=== PATIENT | female | born 1950 | race Caucasian/White ===

== ENCOUNTER 2016-08-27 07:32 | Day surgery (SDC) | payer MEDICARE, OTHER ==
[2016-08-22 15:03] VITALS: BMI 37.1
[~2016-08-27 07:32] MED LIST: LACTATED RINGERS 1,000 ML IV SCH; LIDOCAINE 1% 20 ML VIAL (10MG/ML) FOR IV START INTRADERMA PRN
[2016-08-27 08:06] LABS: Glucose,Whole Blood 85 mg/dL (75-99)
[2016-08-27 08:09] VITALS: RESP 18; TEMP 97.1
[2016-08-27] MEDS ORDERED: PROPOFOL 10 MG/ML 20 ML VIAL IV ONE (08:42)
--- NOTE | 2016-08-27 09:29 | P.OP ---
Date of Procedure: 08/27/16 Preoperative Diagnosis: Screening colonoscopy Postoperative Diagnosis: Cecal polyp, diverticuli, internal/external hemorrhoids Procedure(s) Performed: Colonoscopy Anesthesia: MAC Surgeon: Lety Jackson Estimated Blood Loss (ml): 0 Pathology: other (Cecal polyp) Condition: stable Disposition: PACU Indications for Procedure: Screening colonoscopy Operative Findings: Cecal polyp, diverticuli, internal/external hemorrhoids Description of Procedure: Patient was taken to the endoscopy suite and following sedation rectal exam was performed. Patient was noted to have external skin tags/hemorrhoids. No masses were identified. Colonoscope was passed through the anus into the rectum. Through the sigmoid colon left colon splenic flexure transverse colon hepatic flexure right colon down to the area of the cecum. Circumferential observation mucosa revealed polyp in the cecum which was removed with snare polypectomy and retrieved. The bowel prep was somewhat suboptimal but no other lesions of concern were identified. No lesions of concern were seen in the right colon. No lesions of concern in the transverse colon or left colon. Scattered sigmoid diverticuli were identified. Scope was brought down into the rectum where it was retroflexed internal hemorrhoids identified. Approximately 10 minutes were taken to withdraw the scope from the area of the cecum. Impression/plan 1. Internal/external hemorrhoids 2. Diverticuli sigmoid 3. Cecal polyp removed with snare polypectomy and retrieved Plan: 1. Conservative management of hemorrhoids and diverticuli 2. Await results of pathology from cecal polyp most likely repeat scope in 2 years
--- NOTE | 2016-08-27 09:30 | P.DS ---
Providers Attending physician: Lety Jackson Primary care physician: Mykel Seymour Plan - Discharge Summary Discharge Medication List ALPRAZolam [Xanax] 0.5 mg PO TID PRN 02/14/16 [History] Cholecalciferol [Vitamin D3] 2,000 unit PO QAM 02/14/16 [History] Cyclobenzaprine [Flexeril] 10 mg PO TID PRN 02/14/16 [History] Magnesium Oxide [Magox 400] 400 mg PO QAM 02/14/16 [History] Methocarbamol [Robaxin] 500 mg PO QID PRN 02/14/16 [History] Simvastatin [Zocor] 40 mg PO HS 02/14/16 [History] Anastrozole [Arimidex] 1 mg PO QAM 08/22/16 [History] Lisinopril [Zestril] 5 mg PO QAM 08/22/16 [History] Meclizine [Antivert] 25 mg PO TID 08/22/16 [History] Activity/Diet/Wound Care/Special Instructions: Diverticular diet Discharge Disposition: HOME SELF-CARE
[2016-08-27 10:08] VITALS: BP 130/75; PULSE 66
== END 2016-08-27 10:20 | disposition home or self-care (01) ==
LOC: ORWHC2ENDO 07:32
PROVIDERS: ATTEND Surgery
DX: Z12.11 Encounter for screening for malignant neoplasm of colon (principal); D12.0 Benign neoplasm of cecum; K57.30 Diverticulosis of large intestine without perforation or abscess without bleeding; K64.8 Other hemorrhoids; K64.4 Residual hemorrhoidal skin tags; Z86.010 Personal history of colon polyps; G47.33 Obstructive sleep apnea (adult) (pediatric); I10 Essential (primary) hypertension; E78.5 Hyperlipidemia, unspecified; Z98.84 Bariatric surgery status; Z79.899 Other long term (current) drug therapy; Z85.3 Personal history of malignant neoplasm of breast
CPT/HCPCS: 88305; 45385; J2704; 99153

== ENCOUNTER → 2016-11-11 | Outpatient (CLI) | payer MEDICARE, OTHER ==
[2016-11-11 15:33] VITALS: BP 126/70; PULSE 69; RESP 14; TEMP 97.8; BMI 37.5
--- NOTE | 2016-11-11 16:03 | P.HPBAR ---
Bariatric H&P - History & Physicial H&P Date: 11/11/16 History & Physicial: Visit/CC: band f/u Patient initial contact: Initial weight: 148.778 kg Initial weight in pounds: 328.00 Height: 5 ft 6 in Initial BMI: 52.9 Last weight: Current weight: 105.37 kg Current weight in pounds: 232.30 Current BMI: 37.5 [place] body weight (based on NIH guidelines): 58.967 kg Excess body weight loss: 48.3% The patient is a 65 year-old F who presents for Bariatric Assessment. Patient presents for her LAP-BAND follow-up. She's had some complaints of dysphagia and GERD and vomiting. Her family doctor has ordered some testing of her gallbladder in an esophagram. These were performed at [facility] and are unavailable. Past Medical History Past Medical History: Asthma, Cancer, COPD, Diabetes Mellitus, GERD/Reflux, Hyperlipidemia, Hypertension, Osteoarthritis (OA), Pneumonia, Rheumatoid Arthritis (RA), Sleep Apnea/CPAP/BIPAP Additional Past Medical History / Comment(s): Diet controlled diabetic, hiatal hernia, umbilical hernia. Breast CA with radiation tx. Vertigo, Degen disc disease.Obesity. History of Any Multi-Drug Resistant Organisms: None Reported Past Surgical History: Bariatric Surgery, Bladder Surgery, Heart Catheterization , Hysterectomy, Joint Replacement, Tubal Ligation Additional Past Surgical History / Comment(s): Hx left shoulder replacement, jaron eye surgery for glaucoma. 2Lt breast bx and Lt Lumpectomy. Bladder sling.Hx. Lap Band 12/25/11. Past Anesthesia/Blood Transfusion Reactions: No Reported Reaction Past Psychological History: Anxiety, Depression, Panic Disorder Smoking Status: Never smoker Past Alcohol Use History: Rare Past Drug Use History: None Reported - Past Family History Mother Family Medical History: No Reported History Daughter(s) Family Medical History: Cancer Additional Family Medical History / Comment(s): Colon CA Son(s) Family Medical History: Deep Vein Thrombosis (DVT), Pulmonary Embolus Surgical - Exam Vital Signs Temp Pulse Resp BP 97.8 F 69 14 126/70 11/11/16 15:27 11/11/16 15:27 11/11/16 15:27 11/11/16 15:27 - General well developed, no distress - Eyes PERRL - ENT normal pinna - Neck no masses - Respiratory normal expansion - Cardiovascular Rhythm: regular - Abdomen Abdomen: soft, non tender Bariatric Assessment & Plan Plan: Patient LAP-BAND was accessed in 2 mL was removed. She currently has 5 mL in the LAP-BAND. She is able require without difficulty. We'll follow my office tomorrow for results of her gallbladder testing and esophagram. Bariatric Checklist Checklist: Plan: Checklist: EGD: 1. Hiatal hernia: 2. H. Pylori: HgbA1c: Vitamin D: Smoking: Never smoker Primary care physician referral: jagdeep Psychiatry clearance: Cardiology clearance: Sleep study: Diet journal: VTE risk score: VTE risk level: Rehab needs at discharge:
== END ==
LOC: BARWHC3 14:10
PROVIDERS: ATTEND Surgery
DX: Z48.815 Encounter for surgical aftercare following surgery on the digestive system (principal); Z98.84 Bariatric surgery status
CPT/HCPCS: 99202

== ENCOUNTER → 2016-11-15 | Outpatient (CLI) | payer MEDICARE, OTHER ==
--- NOTE | 2016-11-15 14:43 | NM ---
EXAMINATION TYPE: NM hepatobiliary w EF DATE OF EXAM: 11/15/2016 2:39 PM COMPARISON: NONE HISTORY: Cholecystitis per order. Heartburn and reflux-like symptoms with diminished appetite per pat ient. Cramping. TECHNIQUE: After the intravenous administration of 5.4 mCi Tc 99m Mebrofenin hepatobiliary scintigrap hy is performed. Immediate images post injection. FINDINGS: There is satisfactory initial accumulation of tracer by the liver. The gallbladder is visualized wit hin 25 minutes. The small bowel activity is noted within 20 minutes. At one hour 8 ounces of oral e nsure plus is given to mimic CCK and gallbladder ejection fraction is calculated at 97 %, not diminis hed from the normal range. Therefore there is no scintigraphic evidence of cystic or common bile alyssa t obstruction to suggest acute cholecystitis . Some consider ejection fraction 97% abnormal or a hyp erkinetic response. IMPRESSION: Ejection fraction is 97%, elevated from the normal range, some consider this abnormal or a hyperkinetic response.
== END ==
LOC: RADNMMAIN 11:52
PROVIDERS: ATTEND Surgery
DX: K86.1 Other chronic pancreatitis (principal)
CPT/HCPCS: 78226; A9537

== ENCOUNTER 2016-12-12 07:47 | Day surgery (SDC) | payer MEDICARE, OTHER ==
[2016-12-09 12:02] VITALS: BMI 37.1
[~2016-12-12 07:47] MED LIST changes: +DEXAMETHASONE SOD PHOSPHATE 10 MG/ML 1 ML VIAL IV ONE; -LIDOCAINE 1% 20 ML VIAL (10MG/ML) FOR IV START INTRADERMA PRN; +MIDAZOLAM 2 MG/2 ML VIAL IV PRN; +ONDANSETRON 4 MG/2 ML VIAL IVP ONE; +SCOPOLAMINE 1.5MG/72HR PATCH TRANSDERM ONE; +ceFAZolin 2 GM in SODIUM CHLORIDE 0.9% 100 ML IVPB ONE
[2016-12-12] MEDS ORDERED: LIDOCAINE 1% 20 ML VIAL (10MG/ML) FOR IV START INTRADERMA ONE (08:41)
[2016-12-12] MEDS: HEPARIN SODIUM,PORCINE 5,000 UNIT/ML 1 ML VIAL SQ ONE ×2 (08:44→11:41)
[2016-12-12 08:46] LABS: Glucose,Whole Blood 94 mg/dL (75-99)
--- NOTE | 2016-12-12 08:48 | P.GSHP ---
History of Present Illness H&P Date: 12/12/16 Chief Complaint: Right upper quadrant pain This is a 66-year-old female who presents today for laparoscopic cholecystectomy. Patient complaints of epigastric and right upper quadrant pain. Her recent HIDA scan which had an abnormal ejection fraction patient presents today for laparoscopic cholecystectomy or chronic cholecystitis. - Constitutional Constitutional: Reports as per HPI Past Medical History Past Medical History: Asthma, Cancer, COPD, Diabetes Mellitus, GERD/Reflux, Hyperlipidemia, Hypertension, Osteoarthritis (OA), Rheumatoid Arthritis (RA) Additional Past Medical History / Comment(s): Diet controlled diabetic, hiatal hernia, umbilical hernia. Breast CA with radiation tx. Vertigo, degenerative disc disease, constipation, History of Any Multi-Drug Resistant Organisms: None Reported Past Surgical History: Bariatric Surgery, Bladder Surgery, Breast Surgery, Heart Catheterization, Hysterectomy, Joint Replacement, Tubal Ligation Additional Past Surgical History / Comment(s): Hx left shoulder replacement, jaron eye surgery for glaucoma. Lt breast bx and Lt breast Lumpectomy. Bladder sling. Lap Band 2011 Past Anesthesia/Blood Transfusion Reactions: No Reported Reaction Past Psychological History: Anxiety, Depression, Panic Disorder Smoking Status: Never smoker Past Alcohol Use History: None Reported Past Drug Use History: None Reported - Past Family History Mother Family Medical History: No Reported History Daughter(s) Family Medical History: Cancer Additional Family Medical History / Comment(s): Colon CA Son(s) Family Medical History: Deep Vein Thrombosis (DVT), Pulmonary Embolus Medications and Allergies Home Medications Medication Instructions Recorded Confirmed Type ALPRAZolam [Xanax] 0.5 mg PO TID PRN 02/14/16 12/09/16 History Cholecalciferol [Vitamin D3] 2,000 unit PO QAM 02/14/16 12/12/16 History Cyclobenzaprine [Flexeril] 10 mg PO TID PRN 02/14/16 12/12/16 History Magnesium Oxide [Magox 400] 400 mg PO QAM 02/14/16 12/12/16 History Methocarbamol [Robaxin] 500 mg PO QID PRN 02/14/16 12/12/16 History Anastrozole [Arimidex] 1 mg PO QAM 08/22/16 12/12/16 History Lisinopril [Zestril] 5 mg PO QAM 08/22/16 12/09/16 History Meclizine [Antivert] 25 mg PO TID PRN 08/22/16 12/12/16 History Lactulose 1 tbsp PO HS 12/09/16 12/12/16 History Naproxen [Naprosyn] 375 mg PO Q12HR PRN 12/09/16 12/09/16 History Omeprazole 20 mg PO DAILY 12/09/16 12/12/16 History Allergies Allergy/AdvReac Type Severity Reaction Status Date / Time cigarette smoke Allergy Unknown Verified 12/09/16 13:01 Surgical - Exam Vital Signs Temp Pulse Resp BP Pulse Ox 97.6 F 73 18 114/80 95 12/12/16 08:26 12/12/16 08:26 12/12/16 08:26 12/12/16 08:26 12/12/16 08:26 - General well developed, no distress - Eyes PERRL - ENT normal pinna - Neck no masses - Respiratory normal expansion - Cardiovascular Rhythm: regular - Abdomen Mild right upper quadrant pain Abdomen: soft, tender Assessment and Plan Plan: Right upper quadrant pain Chronic closest We'll perform laparoscopic cholecystectomy.
[2016-12-12] MEDS ORDERED: PROPOFOL 10 MG/ML 20 ML VIAL IV ONE (09:10)
[2016-12-12] MEDS ORDERED: SUCCINYLCHOLINE CHLORIDE 100 MG/5 ML SYR IV ONE (09:10)
[2016-12-12] MEDS ORDERED: fentaNYL (PF) 50 MCG/ML 2 ML AMP ONE (09:10)
[2016-12-12] MEDS ORDERED: LIDOCAINE 1% INJ 10MG/ML (20 ML MDV) ONE (09:10)
[2016-12-12] MEDS ORDERED: ROCURONIUM BROMIDE 10 MG/ML 10 ML VIAL IV ONE (09:10)
[2016-12-12] MEDS ORDERED: HYDROmorphone (PF) 1 MG/ML ONE (09:10)
[2016-12-12] MEDS ORDERED: MIDAZOLAM 2 MG/2 ML VIAL ONE (09:10)
[2016-12-12] MEDS ORDERED: NEOSTIGMINE 1 MG/ML 10 ML VIAL ONE (09:10)
[2016-12-12] MEDS ORDERED: GLYCOPYRROLATE 0.2 MG/ML 2 ML VIAL ONE (09:10)
[2016-12-12] MEDS ORDERED: BUPIVACAIN-EPI 0.25%-1:200,000 30 ML VIAL SQ ONE (09:29)
--- NOTE | 2016-12-12 10:07 | P.OP ---
Date of Procedure: 12/12/16 Preoperative Diagnosis: Cholecystitis Postoperative Diagnosis: Cholecystitis Procedure(s) Performed: Laparoscopic cholecystectomy Implants: Anesthesia: PAM Surgeon: Marc De La Rosa Estimated Blood Loss (ml): 5 Pathology: other (Gallbladder) Condition: stable Disposition: PACU Indications for Procedure: Operative Findings: Description of Procedure: The patient was placed on the operating table. The patient received a general endotracheal tube anesthesia. The patients abdomen was prepped and draped in the usual sterile fashion. Through an infraumbilical stab incision, the fascia of the anterior abdominal wall was grasped with a pair of Kochers and then the Veress needle was placed in the peritoneal cavity. Position of the Veress needle was confirmed with positive drop test. The abdomen was then insufflated. After adequate insufflation, the 10 mm trocar was placed in the peritoneal cavity. Following this the laparoscope was placed in the peritoneal cavity. The patient was placed in the head-up, right side up position and then a 5 mm trocar was placed in the right lateral and right subcostal position under direct visualization. A 8 mm trocar was placed in the epigastric position. The gallbladder was grasped in the fundus and infundibulum. Traction on the gallbladder was placed in the lateral and the cephalad positions. The triangle of Calot was visualized.. The cystic duct was bluntly dissected until the union of the cystic duct and common bile duct was seen. The cystic duct was then divided and sealed with the Harmonic scissors. A PDS Endoloop was then placed throughout the cystic duct stump. The cystic artery divided and sealed with the Harmonic scissors. The gallbladder was then removed from the liver bed using Harmonic scissors. The gallbladder was then extracted through the epigastric port site. Operative field was checked for any bleeding spots and Harmonic scissors was used to coagulate the liver bed. The abdomen was irrigated. The trocars were removed. The skin was closed using interrupted 3-0 Vicryl suture. Dermabond dressing were applied. The patient tolerated the procedure well.
[2016-12-12 10:20] VITALS: TEMP 98.1
[2016-12-12] MEDS ORDERED: KETOROLAC 30 MG/ML 1 ML VIAL IVP ONE (11:17)
[2016-12-12] MEDS: HYDROmorphone 1 MG/ML 1 ML SYRINGE IVP PRN ×2 (11:40→11:45)
[2016-12-12 12:41] VITALS: BP 101/66; PULSE 55; RESP 18
== END 2016-12-12 12:56 | disposition home or self-care (01) ==
LOC: OR 07:47
PROVIDERS: ATTEND Surgery
DX: K81.1 Chronic cholecystitis (principal); J45.909 Unspecified asthma, uncomplicated; J44.9 Chronic obstructive pulmonary disease, unspecified; E11.9 Type 2 diabetes mellitus without complications; K21.9 Gastro-esophageal reflux disease without esophagitis; E78.5 Hyperlipidemia, unspecified; I10 Essential (primary) hypertension; F41.9 Anxiety disorder, unspecified; M19.90 Unspecified osteoarthritis, unspecified site; M06.9 Rheumatoid arthritis, unspecified; Z85.3 Personal history of malignant neoplasm of breast; Z92.3 Personal history of irradiation; Z79.899 Other long term (current) drug therapy
CPT/HCPCS: 88304; 47562; J2250; J1644; J1100; J2710; J0690; J2405; J2001; J3010; J1885; J1170; J0330; J2704

== ENCOUNTER → 2017-03-17 | Outpatient (CLI) | payer MEDICARE, OTHER ==
[2017-03-17 14:21] VITALS: BP 134/73; PULSE 77; RESP 16; TEMP 98.1; BMI 40.2
--- NOTE | 2017-03-17 14:48 | P.HPBAR ---
Bariatric H&P - History & Physicial H&P Date: 03/17/17 History & Physicial: Visit/CC: band adj Patient initial contact: Initial weight: 148.778 kg Initial weight in pounds: 328.00 Height: 5 ft 6 in Initial BMI: 52.9 Last weight: Current weight: 113.086 kg Current weight in pounds: 249.00 Current BMI: 40.2 [place] body weight (based on NIH guidelines): 58.967 kg Excess body weight loss: 39.8% The patient is a 66 year-old F who presents for Bariatric Assessment. Patient presents today for LAP-BAND follow-up. She complains of hunger is wishing to have a fill. Past Medical History Past Medical History: Asthma, Cancer, COPD, Diabetes Mellitus, GERD/Reflux, Hyperlipidemia, Hypertension, Osteoarthritis (OA), Rheumatoid Arthritis (RA) Additional Past Medical History / Comment(s): Diet controlled diabetic, hiatal hernia, umbilical hernia. Breast CA with radiation tx. Vertigo, degenerative disc disease, constipation, History of Any Multi-Drug Resistant Organisms: None Reported Past Surgical History: Bariatric Surgery, Bladder Surgery, Breast Surgery, Heart Catheterization, Hysterectomy, Joint Replacement, Tubal Ligation Additional Past Surgical History / Comment(s): Hx left shoulder replacement, jaron eye surgery for glaucoma. Lt breast bx and Lt breast Lumpectomy. Bladder sling. Lap Band 2011 Past Anesthesia/Blood Transfusion Reactions: No Reported Reaction Smoking Status: Never smoker - Past Family History Mother Family Medical History: No Reported History Daughter(s) Family Medical History: Cancer Additional Family Medical History / Comment(s): Colon CA Son(s) Family Medical History: Deep Vein Thrombosis (DVT), Pulmonary Embolus Surgical - Exam Vital Signs Temp Pulse Resp BP 98.1 F 77 16 134/73 03/17/17 14:19 03/17/17 14:19 03/17/17 14:19 03/17/17 14:19 - General well developed, no distress - Eyes PERRL left: lesions - Abdomen Abdomen: soft, non tender Bariatric Assessment & Plan Plan: The patient LAP-BAND was adjusted. She had 2 mL added to her band. She currently has 5 mL in the band. She'll follow-up in one month. Bariatric Checklist Checklist: Plan: Checklist: EGD: 1. Hiatal hernia: 2. H. Pylori: HgbA1c: Vitamin D: Smoking: Never smoker Primary care physician referral: jagdeep Psychiatry clearance: Cardiology clearance: Sleep study: Diet journal: VTE risk score: VTE risk level: Rehab needs at discharge:
== END | disposition home or self-care (01) ==
LOC: BARWHC3 13:36
PROVIDERS: ATTEND Surgery
DX: Z48.815 Encounter for surgical aftercare following surgery on the digestive system (principal); Z98.84 Bariatric surgery status
CPT/HCPCS: 99212

== ENCOUNTER → 2018-01-26 | Outpatient (CLI) | payer MEDICARE ==
[2018-01-26 14:01] VITALS: BP 142/78; PULSE 62; RESP 16; TEMP 98.2; BMI 41.3
--- NOTE | 2018-01-26 15:51 | P.HPBAR ---
Bariatric H&P - History & Physicial H&P Date: 01/26/18 History & Physicial: Visit/CC: band follow-up Patient initial contact: Initial weight: 148.778 kg Initial weight in pounds: 328.00 Height: 5 ft 6 in Initial BMI: 52.9 Last weight: Current weight: 116.346 kg Current weight in pounds: 256.50 Current BMI: 41.3 [place] body weight (based on NIH guidelines): 58.967 kg Excess body weight loss: 36.1% The patient is a 67 year-old F who presents for Bariatric Assessment. Patient' s complaints of hunger. She is requesting a fill. Her band was admitted by Dr. Higgins last month. Past Medical History Past Medical History: Asthma, Cancer, COPD, Diabetes Mellitus, GERD/Reflux, Hyperlipidemia, Hypertension, Osteoarthritis (OA), Rheumatoid Arthritis (RA) Additional Past Medical History / Comment(s): Diet controlled diabetic, hiatal hernia, umbilical hernia. Breast CA with radiation tx. Vertigo, degenerative disc disease, constipation, History of Any Multi-Drug Resistant Organisms: None Reported Past Surgical History: Bariatric Surgery, Bladder Surgery, Breast Surgery, Heart Catheterization, Hysterectomy, Joint Replacement, Tubal Ligation Additional Past Surgical History / Comment(s): Hx left shoulder replacement, jaron eye surgery for glaucoma. Lt breast bx and Lt breast Lumpectomy. Bladder sling. Lap Band 2011 Past Anesthesia/Blood Transfusion Reactions: No Reported Reaction Smoking Status: Never smoker - Past Family History Mother Family Medical History: No Reported History Daughter(s) Family Medical History: Cancer Additional Family Medical History / Comment(s): Colon CA Son(s) Family Medical History: Deep Vein Thrombosis (DVT), Pulmonary Embolus Surgical - Exam Vital Signs Temp Pulse Resp BP 98.2 F 62 16 142/78 01/26/18 13:57 01/26/18 13:57 01/26/18 13:57 01/26/18 13:57 - General well developed, no distress - Eyes PERRL - ENT normal pinna - Neck no masses - Respiratory normal expansion - Cardiovascular Rhythm: regular - Abdomen Abdomen: soft, non tender Bariatric Assessment & Plan Plan: Patient's lap band was adjusted. She had 3 mL added to her band. She is able require without difficulty. She'll follow-up in 4 weeks. Bariatric Checklist Checklist: Plan: Checklist: EGD: 1. Hiatal hernia: 2. H. Pylori: HgbA1c: Vitamin D: Smoking: Never smoker Primary care physician referral: kut Psychiatry clearance: Cardiology clearance: Sleep study: Diet journal: VTE risk score: VTE risk level: Rehab needs at discharge:
== END | disposition home or self-care (01) ==
LOC: BARWHC3 13:13
PROVIDERS: ATTEND Surgery
DX: Z48.815 Encounter for surgical aftercare following surgery on the digestive system (principal); Z98.84 Bariatric surgery status
CPT/HCPCS: 99211

== ENCOUNTER → 2018-02-23 | Outpatient (CLI) | payer MEDICARE ==
[2018-02-23 15:26] VITALS: BP 131/72; PULSE 72; TEMP 98.2; BMI 42.9
--- NOTE | 2018-02-23 15:46 | P.HPBAR ---
Bariatric H&P - History & Physicial H&P Date: 02/23/18 History & Physicial: Visit/CC: lap band follow up Patient initial contact: Initial weight: 148.778 kg Initial weight in pounds: 328.00 Height: 5 ft 6 in Initial BMI: 52.9 Last weight: Current weight: 120.656 kg Current weight in pounds: 266.00 Current BMI: 42.9 [place] body weight (based on NIH guidelines): 58.967 kg Excess body weight loss: 31.3% The patient is a 67 year-old F who presents for Bariatric Assessment. Patient presents for LAP-BAND adjustment. She currently feels hungry and is requesting a fill. Past Medical History Past Medical History: Asthma, Cancer, COPD, Diabetes Mellitus, GERD/Reflux, Hyperlipidemia, Hypertension, Osteoarthritis (OA), Rheumatoid Arthritis (RA) Additional Past Medical History / Comment(s): Diet controlled diabetic, hiatal hernia, umbilical hernia. Breast CA with radiation tx. Vertigo, degenerative disc disease, constipation, History of Any Multi-Drug Resistant Organisms: None Reported Past Surgical History: Bariatric Surgery, Bladder Surgery, Breast Surgery, Heart Catheterization, Hysterectomy, Joint Replacement, Tubal Ligation Additional Past Surgical History / Comment(s): Hx left shoulder replacement, jaron eye surgery for glaucoma. Lt breast bx and Lt breast Lumpectomy. Bladder sling. Lap Band 2011 Past Anesthesia/Blood Transfusion Reactions: No Reported Reaction Smoking Status: Never smoker - Past Family History Mother Family Medical History: No Reported History Daughter(s) Family Medical History: Cancer Additional Family Medical History / Comment(s): Colon CA Son(s) Family Medical History: Deep Vein Thrombosis (DVT), Pulmonary Embolus Surgical - Exam Vital Signs Temp Pulse BP 98.2 F 72 131/72 02/23/18 15:23 02/23/18 15:23 02/23/18 15:23 - General well developed, no distress - Eyes PERRL - ENT normal pinna - Neck no masses - Respiratory normal expansion - Cardiovascular Rhythm: regular - Abdomen Abdomen: soft, non tender Bariatric Assessment & Plan Plan: The patient LAP-BAND was adjusted. She had 1 mL added to her band. She'll follow-up in 4 weeks. Bariatric Checklist Checklist: Plan: Checklist: EGD: 1. Hiatal hernia: 2. H. Pylori: HgbA1c: Vitamin D: Smoking: Never smoker Primary care physician referral: jagdeep Psychiatry clearance: Cardiology clearance: Sleep study: Diet journal: VTE risk score: VTE risk level: Rehab needs at discharge:
== END | disposition home or self-care (01) ==
LOC: BARWHC3 15:03
PROVIDERS: ATTEND Surgery
DX: Z46.51 Encounter for fitting and adjustment of gastric lap band (principal); T73.0XXA Starvation, initial encounter; K21.9 Gastro-esophageal reflux disease without esophagitis; Z98.84 Bariatric surgery status; Z98.890 Other specified postprocedural states; Z95.5 Presence of coronary angioplasty implant and graft; Z90.710 Acquired absence of both cervix and uterus; Z96.612 Presence of left artificial shoulder joint; Z98.51 Tubal ligation status; Z90.12 Acquired absence of left breast and nipple
CPT/HCPCS: 99212